=== PATIENT | male | born 1985 | race Caucasian/White ===

== ENCOUNTER 2016-12-28 05:03 | Emergency (ER) | payer MEDICAID ==
[2016-12-28 05:15] VITALS: O2SAT 98
[2016-12-28] MEDS ORDERED: TORAdol 30 mg Injection IM ONE (05:25)
--- NOTE | 2016-12-28 05:25 | ERPHSYRPT ---
- History of Present Illness Source: patient Exam Limitations: clinical condition Patient Subjective Stated Complaint: pt has a history of back problems and needs surgery -he has been crying for 2 hours - he also has pain in his left 4th finger -he injured it yesterday while playing basketball -he is from out of town and here taking care of family Triage Nursing Assessment: pt is awake and alert and able to answer questions Physician History: Patient with pain left ring finger after grabbing dog to make behavior earlier today with pain in the proximal and distal interphalangeal joints areas. Did some icing for a few minutes earlier today pain with flexion at this joint. Denies other injury. Patient has history of chronic low back pain is supposed to have back surgery at his desk is been bothering him more today. Has been taking ibuprofen 600 mg twice yesterday. No change in bowel or bladder control and no radiation in the lower extremities. Was able to walk to the emergency room at this time without any difficulty. 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 Occurred: this morning Method of Injury: twisted (and pulled) Quality: constant, aching, throbbing Severity of Pain-Max: moderate Severity of Pain-Current: moderate Extremities Pain Location: 4th finger: left Modifying Factors: Improves With: immobilization, movement, rest Associated Symptoms: other (CHRONIC BACK PAIN EXACERBATION) Allergies/Adverse Reactions: divalproex sodium [From Depakote] Allergy (Verified 12/28/16 05:23) pseudoephedrine [From Sudafed] Allergy (Verified 12/28/16 05:22) quetiapine [From Seroquel] Allergy (Verified 12/28/16 05:23) Home Medications: Lamotrigine [Lamictal] 0 mg DAILY 12/28/16 [History] Omeprazole 20 MG [Prilosec 20 mg] 0 mg 12/28/16 [History] Ranitidine HCl [Zantac] 0 mg DAILY 12/28/16 [History] Verapamil HCl 0 mg DAILY 12/28/16 [History] Hx Tetanus, Diphtheria Vaccination/Date Given: No Hx Influenza Vaccination/Date Given: No Hx Pneumococcal Vaccination/Date Given: No Immunizations Up to Date: No - Review of Systems Constitutional: No Symptoms Eyes: No Symptoms Ears, Nose, & Throat: No Symptoms Respiratory: No Symptoms Cardiac: No Symptoms Abdominal/Gastrointestinal: No Symptoms Genitourinary Symptoms: No Symptoms Musculoskeletal: Back Pain, Other ( NOTED HPI LRF) Skin: No Symptoms Neurological: No Symptoms Psychological: No Symptoms - Past Medical History Neurological History: Migraines Musculoskeletal History: Other (CHRONIC BACK PAIN) GI Medical History: Ulcer (SYMPTOMS INTERMITTENTLY TAKES ZANTAC PRN,NONE AT THIS TIME.) Psycho-Social History: Bipolar - Past Surgical History Gastrointestinal: Hernia Repair - Social History Smoking Status: Current every day smoker Exposure to second hand smoke: Yes Patient Lives Alone: No - Nursing Vital Signs Nursing Vital Signs: Initial Vital Signs Temperature 98.2 F 12/28/16 05:13 Pulse Rate 74 12/28/16 05:13 Respiratory Rate 20 12/28/16 05:13 Blood Pressure 130/90 12/28/16 05:13 O2 Sat by Pulse Oximetry 98 12/28/16 05:13 Pain Scale Pain Intensity [Back] 8 Pain Intensity 8 - Physical Exam General Appearance: mild distress, alert, anxiety Eyes, Ears, Nose, Throat Exam: normal ENT inspection Neck Exam: normal inspection Cardiovascular/Respiratory Exam: chest non-tender, normal breath sounds, regular rate/rhythm Abdominal Exam: non-tender, soft, no organomegaly, no hernia, No guarding, No tenderness Back Exam: normal inspection, muscle spasm (WITH MILD PALPABLE TENDERNESS RIGHT LOWER THORACIC UPPER LUMBAR AREA), other (STRAIGHT LEG RAISING NEGATIVE BILATERAL NORMAL +2 OR 4 REFLEXES PATELLAR AND ACHILLES AND NORMAL SENSATION LOWER EXTREMI), No vertebral tenderness Shoulder Exam: normal inspection Elbow/Forearm Exam: normal inspection Wrist Exam: normal inspection Hand Exam: limited ROM (unable to flex the distal phalanx and DIP join with some tenderness), soft tissue tenderness (INTACT BUT PAINFUL,PIP JOINT LEFT RING FINGER), swelling (LEFT RING FINGER PIP JOINTRANGE OF MOTION IS INTACT BUT PAINFUL WITH NORMAL NEUROVASCULAR MUSCULAR F AND STRESS TESTING.), No nail injury Neuro/Tendon Exam: normal sensation, tendon function deficit ( NOTED), No no evidence tendon injury, No motor deficit, No sensory deficit Mental Status Exam: alert, oriented x 3, cooperative Skin Exam: normal color, warm, dry, rash SpO2 Interpretation: normal SpO2: 98 Oxygen Delivery: Room Air Ordered Tests: Active Orders 24 hr Category Date Time Status Splint STAT Care 12/28/16 06:07 Active FINGER(S) Stat Exams 12/28/16 05:18 Taken Medication Summary Discontinued Medications Generic Name Dose Route Start Last Admin Trade Name Russell PRN Reason Stop Dose Admin Ketorolac Tromethamine 60 mg 12/28/16 05:25 12/28/16 05:29 Toradol 30 Mg Injection IM 12/28/16 05:26 60 mg STAT ONE Administration Ketorolac Tromethamine Confirm 12/28/16 05:28 Toradol 30 Mg Injection Administered 12/28/16 05:29 Dose 60 mg .ROUTE .STK-MED ONE - Progress Progress: improved, re-examined Progress Note: 12/28/16 06:38Patient with jersey finger injury left ring finger. Patient's Medicaid primary medical provider is in [place] and he is referred to this physician as soon as possible for referral to a hand specialist for further treatment and possible surgery of this injury. He is given copy of his x-rays. I emphasized the importance of this greatly and patient understood. Counseled pt/family regarding: diagnosis, need for follow-up, rad results - Departure Time of Disposition: 06:18 Departure Disposition: Home Clinical Impression: Jersey finger Qualifiers: Encounter type: initial encounter Qualified Code(s): S63.639A - Sprain of interphalangeal joint of unspecified finger, initial encounter Back pain Qualifiers: Back pain location: back pain in unspecified location Chronicity: chronic Back pain laterality: unspecified Qualified Code(s): M54.9 - Dorsalgia, unspecified Condition: Stable Critical Care Time: No Referrals: DOCTOR,NO FAMILY [Primary Care Provider] - Instructions: Finger Flexor Tendon Injury, Low Back Pain Additional Instructions: You have torn the tendon that flexes the end of ear ring finger on the left hand, keep the finger in the splint that we have applied reinforced tape as necessary. You must see your medical Medicaid provider as soon as possible and be referred to a hand surgeon. The surgery needs to be done within 7-10 days for good results. He may apply ice to the area for 20 m/h as often as possible next 48 hours also may take Motrin and/or Tylenol for discomfort. Also recommended this medicine for your back pain and follow-up with your pain management and/or medical provider for this also. Obviously no strenuous activity at all with your left hand.
[2016-12-28] MEDS ORDERED: TORAdol 30 mg Injection ONE (05:28)
[2016-12-28 06:26] VITALS: BP 135/98; PULSE 68
--- NOTE | 2016-12-28 13:03 | XRAY ---
Exam: 3 views of the left fourth finger including most of the left hand from 12/28/2016. Comparison: None. Indication: Trauma to left fourth digit. Findings: AP, oblique, and lateral radiographs were obtained. I note mild soft tissue swelling about the PIP joint of the left fourth finger. However, no acute fracture or dislocation is seen. The joint spaces appear unremarkable. No other abnormality of the visualized left hand is seen. Impression: 1. No acute fracture or dislocation of the left fourth finger is seen. 2. I note mild diffuse soft tissue swelling about the PIP joint of the left fourth finger. Correlate clinically.
== END 2016-12-28 06:43 | disposition home or self-care (01) ==
LOC: ED 05:03
DX: S63.639A Sprain of interphalangeal joint of unspecified finger, initial encounter (principal); M54.9 Dorsalgia, unspecified; M79.645 Pain in left finger(s)
CPT/HCPCS: 73140; 96372; 96374; 99282; 99284; J1885

== ENCOUNTER 2017-01-18 17:16 | Emergency (ER) | payer MEDICAID | END 2017-01-18 18:51 | disposition left against medical advice (07) | LOC: ED 17:16 | DX: Z53.9 Procedure and treatment not carried out, unspecified reason (principal) ==

== ENCOUNTER 2017-01-19 22:50 | Emergency (ER) | payer MEDICAID ==
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
[2017-01-19 23:18] VITALS: BP 130/95; PULSE 83
[2017-01-19 23:48] VITALS: O2SAT 96
== END 2017-01-20 00:12 | disposition home or self-care (01) ==
LOC: ED 22:50
DX: F32.9 Major depressive disorder, single episode, unspecified (principal)
CPT/HCPCS: 99282

== ENCOUNTER 2017-01-24 10:37 | Emergency (ER) | payer MEDICAID ==
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
[2017-01-24 11:11] LABS: BASOPHIL % 0.5 % (0.0-0.4); Eosinophil % 3.2 % (0.00-5.0); Granulocytes % 60.8 % (36.0-66.0); Lymphocytes % 28.1 % (24.0-44.0); Mean Cell Volume 86.7 fl (78-100); Mean Platelet Volume 10.1 fl (6-9.5); Monocytes % 7.4 % (0.0-12.0); Platelet Count 393 K/mm3 (150-450); Red Blood Count 5.13 M/mm3 (4.1-5.6); Red Cell Distribution Width 12.4 % (11.5-14.0); White Blood Count 6.3 K/mm3 (4.0-10.5)
[2017-01-24 11:23] LABS: ADD URINE CULTURE? NO (NO); Bilirubin NEGATIVE (NEGATIVE); Blood NEGATIVE Ery/ul (0-5); COMPLETE URINE MICROSCOPIC? NO; Collection Type CCMS; Glucose NEGATIVE (NEGATIVE); Leukocyte Esterase NEGATIVE (NEGATIVE)
[2017-01-24 11:41] LABS: ALBUMIN 3.9 g/dL (3.4-5.0); ALKALINE PHOSPHATASE 85 U/L (46-116); ANION GAP 13.4 MEQ/L (5-15); BLOOD UREA NITROGEN 10 mg/dL (9-20); CHLORIDE 105 mEq/L (98-107); Carbon Dioxide 25.7 mEq/L (21-32); ETHYL ALCOHOL < 0.010 % (0.00-0.01); Glucose 100 MG/DL (70-110); Potassium 4.2 mEq/L (3.5-5.1); SGOT/AST 23 U/L (15-37); SGPT/ALT 21 U/L (12-78); SODIUM 140 mEq/L (136-145); Total Protein 7.6 gm/dL (6.4-8.2)
[2017-01-24 11:43] LABS: ACETAMINOPHEN < 2.0 ug/ml (10-30)
[2017-01-24 14:28] VITALS: BP 137/79
[2017-01-24 15:45] VITALS: PULSE 70
[2017-01-24] MEDS ORDERED: Ativan 0.5 MG PO ONE (15:49)
[2017-01-24] MEDS ORDERED: Ativan 1 MG ONE (15:56)
[2017-01-24 16:14] VITALS: O2SAT 96
== END 2017-01-24 17:09 | disposition short-term general hospital (02) ==
LOC: ED 10:37
DX: F29 Unspecified psychosis not due to a substance or known physiological condition (principal)
CPT/HCPCS: 36415; 80053; 80307; 81002; 85025; 90791; 99285; G0481; Q3014; A9270-GY

== ENCOUNTER 2017-02-26 21:46 | Emergency (ER) | payer MEDICAID ==
[2017-02-26 22:04] VITALS: O2SAT 93
--- NOTE | 2017-02-26 22:15 | ERPHSYRPT ---
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 headache starting at 2015 tonight.. states hx of headaches.. no known injury.. vomiting with headache. noted bilateral eye redness and nasal congestion. 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 denies numbness or tingling to extremities. Physician History: FOR ABOUT THE PAST 2 HOURS PT HAS HAD HIS TYPICAL MIGRAINE HEADACHE WITH NAUSEA , VOMITING X3 WITHOUT BLOOD, BLURRY VISION AND PHOTOPHOBIA. PT STATES HIS LAST CT-HEAD WAS 5 YEARS AGO. PT DENIES TINGLING/NUMBNESS, WEAKNESS, CHEST PAIN, SHORTNESS OF AIR, FEVER. Allergies/Adverse Reactions: divalproex sodium [From Depakote] Allergy (Verified 02/26/17 22:05) olanzapine [From Zyprexa] Allergy (Verified 02/26/17 22:09) pseudoephedrine [From Sudafed] Allergy (Verified 02/26/17 22:05) quetiapine [From Seroquel] Allergy (Verified 02/26/17 22:05) Home Medications: Omeprazole 20 MG [Prilosec 20 mg] 20 mg PO DAILY 12/28/16 [History] Ranitidine HCl [Zantac] 300 mg PO DAILY PRN PRN 12/28/16 [History] Albuterol Sulfate [Proventil Hfa] 6.7 gm IH Q6HPRN PRN 02/26/17 [History] Aspirin/Acetaminophen/Caffeine [Excedrin Extra Strength Caplet] 1 each PO Q6H PRN PRN 02/26/17 [History] Fexofenadine HCl 180 mg PO BID 02/26/17 [History] Fluticasone Propionate [Flonase Nasal] 0 gm INTRANASAL DAILY PRN PRN 02/26/17 [ History] Fluticasone/Salmeterol [Advair 100-50 Diskus] 1 each IH BID 02/26/17 [History] Guanfacine HCl 1 mg PO TID 02/26/17 [History] Ibuprofen 200 mg [Motrin 200 mg] 200 mg PO Q8H PRN PRN 02/26/17 [History] Lamotrigine [Lamictal] 150 mg PO BID 02/26/17 [History] Loperamide HCl 2 mg [Imodium 2 mg] 2 mg PO UD 02/26/17 [History] Mupirocin 22 gm TP QID 02/26/17 [History] Ondansetron [Zofran Odt] 4 mg PO Q8H PRN PRN 02/26/17 [History] Pramoxine HCl [Sarna] 222 ml TP BID 02/26/17 [History] Promethazine HCl 25 mg PO Q6H PRN PRN 02/26/17 [History] Sildenafil Citrate [Sildenafil] 20 mg PO UD 02/26/17 [History] Verapamil HCl [Verapamil Sr] 360 mg PO DAILY 02/26/17 [History] Hx Tetanus, Diphtheria Vaccination/Date Given: No Hx Influenza Vaccination/Date Given: No Hx Pneumococcal Vaccination/Date Given: No Immunizations Up to Date: No - Review of Systems Constitutional: No Weakness Eyes: Photophobia, Vision Changes (BLURRY VISION) Respiratory: No Dyspnea Cardiac: No Chest Pain Abdominal/Gastrointestinal: Nausea, Vomiting Neurological: Headache All Other Systems: Reviewed and Negative - Past Medical History Pertinent Past Medical History: Yes Neurological History: Migraines Respiratory History: Asthma Musculoskeletal History: Other GI Medical History: Ulcer Psycho-Social History: Bipolar Other Medical History: EXPLOSIVE DISORDER. MENTAL RETARDATION - Past Surgical History Past Surgical History: Yes Gastrointestinal: Hernia Repair Musculoskeletal: Orthopedic Surgery Other Surgical History: back surgery - Social History Smoking Status: Current every day smoker How long have you smoked: YRS Exposure to second hand smoke: No Alcohol Use: None Drug Use: marijuana Patient Lives Alone: No Significant Family History: no pertinent family hx - Nursing Vital Signs Nursing Vital Signs: Initial Vital Signs Temperature 97.7 F 02/26/17 21:50 Pulse Rate 70 02/26/17 21:50 Blood Pressure 150/91 02/26/17 21:50 O2 Sat by Pulse Oximetry 93 L 02/26/17 21:50 Pain Scale Pain Intensity 8 - Physical Exam General Appearance: alert Eye Exam: PERRL/EOMI Ears, Nose, Throat Exam: pharynx normal, moist mucous membranes Neck Exam: full range of motion Respiratory Exam: lungs clear Cardiovascular Exam: normal heart sounds Gastrointestinal/Abdomen Exam: soft, normal bowel sounds Back Exam: normal range of motion Extremity Exam: normal inspection, normal range of motion Neurologic Exam: alert, cooperative, sensation nml, No motor deficits Skin Exam: warm, dry SpO2 Interpretation: normal SpO2: 93 Oxygen Delivery: Room Air - Course Nursing assessment & vital signs reviewed: Yes Ordered Tests: Medication Summary Discontinued Medications Generic Name Dose Route Start Last Admin Trade Name Freq PRN Reason Stop Dose Admin Hydromorphone HCl 1 mg 02/26/17 22:30 02/26/17 22:40 Hydromorphone 1 Mg/Ml Ampule IM 02/26/17 22:31 1 mg STAT ONE Administration Hydromorphone HCl Confirm 02/26/17 22:33 Hydromorphone 1 Mg/Ml Ampule Administered 02/26/17 22:34 Dose 1 mg .ROUTE .STK-MED ONE Promethazine HCl 25 mg 02/26/17 22:30 02/26/17 22:40 Phenergan 25 Mg Inj IM 02/26/17 22:31 25 mg STAT ONE Administration Promethazine HCl Confirm 02/26/17 22:33 Phenergan 25 Mg Inj Administered 02/26/17 22:34 Dose 25 mg .ROUTE .STK-MED ONE - Departure Time of Disposition: 22:52 Departure Disposition: Home Clinical Impression: MIGRAINE HEADACHE Condition: Stable Critical Care Time: No Referrals: DOCTOR,NO FAMILY [Primary Care Provider] - Instructions: Headache Additional Instructions: FOLLOW UP WITH PRIVATE DOCTOR TOMORROW. Prescriptions: Promethazine HCl 25 mg [Phenergan 25 mg] 25 mg PO Q4H PRN PRN #14 tablet PRN Reason: Nausea/Vomiting
[2017-02-26] MEDS ORDERED: Hydromorphone 1 mg/ml Ampule IM ONE (22:30)
[2017-02-26] MEDS ORDERED: Phenergan 25 MG INJ IM ONE (22:30)
[2017-02-26] MEDS ORDERED: Hydromorphone 1 mg/ml Ampule ONE (22:33)
[2017-02-26] MEDS ORDERED: Phenergan 25 MG INJ ONE (22:33)
[2017-02-26 23:22] VITALS: BP 145/93; PULSE 82
== END 2017-02-26 23:22 | disposition home or self-care (01) ==
LOC: ED 21:46
DX: G43.909 Migraine, unspecified, not intractable, without status migrainosus (principal); R11.2 Nausea with vomiting, unspecified
CPT/HCPCS: 96372; 99284; J1170; J2550

== ENCOUNTER 2017-07-01 05:13 | Emergency (ER) | payer MEDICAID ==
--- NOTE | 2017-07-01 05:36 | ERPHSYRPT ---
- History of Present Illness Time Seen by Provider: 07/01/17 05:31 Source: patient, other (N.N.) Exam Limitations: no limitations Patient Subjective Stated Complaint: pt states he has had a temp of 101.2 at home and has been vomiting and having diarrhea Triage Nursing Assessment: pt alert and oriented, asnwers questions approp. respirations nonlabored with jen ngs cta. pt ambulatory with st fauzia gait noted. abd sift and nontender to light palpation. bowel sounds present in all 4 quads. Physician History: FOR THE PAST 9.5 HOURS PT HAS HAD VOMITING X7 AND DIARRHEA X7 BOTH WITHOUT BLOOD , HIS TYPICAL MIGRAINE HEADACHE AND FEVER UP TO 101.2 DEGREES. PT DENIES CHEST PAIN, COUGH, SHORTNESS OF AIR, ABDOMINAL PAIN. LAST CT HEAD WAS WITHIN 5 YEARS & WNL. Allergies/Adverse Reactions: divalproex sodium [From Depakote] Allergy (Verified 07/01/17 05:43) olanzapine [From Zyprexa] Allergy (Verified 07/01/17 05:43) pseudoephedrine [From Sudafed] Allergy (Verified 07/01/17 05:43) quetiapine [From Seroquel] Allergy (Verified 07/01/17 05:43) Home Medications: Omeprazole 20 MG [Prilosec 20 mg] 20 mg PO DAILY 12/28/16 [History] Ranitidine HCl [Zantac] 300 mg PO DAILY PRN PRN 12/28/16 [History] Albuterol Sulfate [Proventil Hfa] 6.7 gm IH Q6HPRN PRN 02/26/17 [History] Aspirin/Acetaminophen/Caffeine [Excedrin Extra Strength Caplet] 1 each PO Q6H PRN PRN 02/26/17 [History] Fexofenadine HCl 180 mg PO BID 02/26/17 [History] Fluticasone Propionate [Flonase Nasal] 0 gm INTRANASAL DAILY PRN PRN 02/26/17 [ History] Fluticasone/Salmeterol [Advair 100-50 Diskus] 1 each IH BID 02/26/17 [History] Guanfacine HCl 0.5 mg PO TID 02/26/17 [History] Ibuprofen 200 mg [Motrin 200 mg] 200 mg PO Q8H PRN PRN 02/26/17 [History] Lamotrigine [Lamictal] 150 mg PO BID 02/26/17 [History] Loperamide HCl 2 mg [Imodium 2 mg] 2 mg PO UD 02/26/17 [History] Mupirocin 22 gm TP QID 02/26/17 [History] Ondansetron [Zofran Odt] 4 mg PO Q8H PRN PRN 02/26/17 [History] Pramoxine HCl [Sarna] 222 ml TP BID 02/26/17 [History] Promethazine HCl 25 mg PO Q6H PRN PRN 02/26/17 [History] Sildenafil Citrate [Sildenafil] 20 mg PO UD 02/26/17 [History] Verapamil HCl [Verapamil Sr] 360 mg PO DAILY 02/26/17 [History] Hx Tetanus, Diphtheria Vaccination/Date Given: No (unknown) Hx Influenza Vaccination/Date Given: Yes Hx Pneumococcal Vaccination/Date Given: No Immunizations Up to Date: No - Review of Systems Constitutional: Fever Respiratory: No Cough, No Dyspnea Cardiac: No Chest Pain Abdominal/Gastrointestinal: Vomiting, Diarrhea, No Abdominal Pain Neurological: Headache All Other Systems: Reviewed and Negative - Past Medical History Pertinent Past Medical History: Yes Neurological History: Migraines Respiratory History: Asthma Musculoskeletal History: Other GI Medical History: Ulcer Psycho-Social History: Bipolar Other Medical History: INTERMITTENT EXPLOSIVE DISORDER. MENTAL RETARDATION - Past Surgical History Past Surgical History: Yes Gastrointestinal: Hernia Repair Musculoskeletal: Orthopedic Surgery Other Surgical History: back surgery - Social History Smoking Status: Current every day smoker How long have you smoked: 20yrs Exposure to second hand smoke: Yes Alcohol Use: None Drug Use: marijuana Patient Lives Alone: No Significant Family History: no pertinent family hx - Nursing Vital Signs Nursing Vital Signs: Initial Vital Signs Temperature 98.1 F 07/01/17 05:21 Pulse Rate 113 H 07/01/17 05:21 Respiratory Rate 18 07/01/17 05:21 Blood Pressure 131/92 07/01/17 05:21 O2 Sat by Pulse Oximetry 95 07/01/17 05:21 Pain Scale Pain Intensity 4 - Physical Exam General Appearance: alert Eye Exam: PERRL/EOMI Ears, Nose, Throat Exam: TMs normal, dry mucous membranes, pharyngeal erythema Neck Exam: normal inspection Respiratory Exam: lungs clear Cardiovascular Exam: tachycardia Gastrointestinal/Abdomen Exam: soft, other ([employer] MIL[employer]PERACT[employer] AND NORMOTONIC) Back Exam: normal range of motion Extremity Exam: normal inspection, No pedal edema Neurologic Exam: alert, cooperative Skin Exam: warm, dry SpO2 Interpretation: normal SpO2: 95 Oxygen Delivery: Room Air - Course Nursing assessment & vital signs reviewed: Yes Ordered Tests: Active Orders 24 hr Category Date Time Status Clean Catch Urine Specimen STAT Care 07/01/17 05:36 Active IV Insertion STAT Care 07/01/17 05:36 Active AMYLASE Stat Lab 07/01/17 05:45 Completed CBC W DIFF Stat Lab 07/01/17 05:45 Completed CMP Stat Lab 07/01/17 05:45 Completed CULTURE, THROAT Stat Lab 07/01/17 05:45 Received LIPASE Stat Lab 07/01/17 05:45 Completed MAGNESIUM Stat Lab 07/01/17 05:45 Completed STREP SCREEN-BETA A Stat Lab 07/01/17 05:45 Completed UA W/ MICROSCOPIC Stat Lab 07/01/17 06:30 Results Medication Summary Generic Name Dose Route Start Last Admin Trade Name Freq PRN Reason Stop Dose Admin Magnesium Oxide 400 mg 07/01/17 10:00 Mag-Ox 400 PO 07/31/17 09:59 BID CARLOS Discontinued Medications Generic Name Dose Route Start Last Admin Trade Name Freq PRN Reason Stop Dose Admin Fentanyl Citrate 50 mcg 07/01/17 05:36 07/01/17 05:42 Sublimaze 100 Mcg/2 Ml IV 07/01/17 05:37 50 mcg STAT ONE Administration Fentanyl Citrate Confirm 07/01/17 05:40 Sublimaze 100 Mcg/2 Ml Administered 07/01/17 05:41 Dose 100 mcg .ROUTE .STK-MED ONE Sodium Chloride 1,000 mls @ 999 mls/hr 07/01/17 05:36 07/01/17 05:42 Sodium Chloride 0.9% 1000 Ml IV 07/01/17 06:36 999 mls/hr .Q1H1M STA Administration Sodium Chloride Confirm 07/01/17 05:40 Sodium Chloride 0.9% 1000 Ml Administered 07/01/17 05:41 Dose 1,000 mls @ ud .ROUTE .STK-MED ONE Promethazine HCl 12.5 mg 07/01/17 05:36 07/01/17 05:42 Phenergan 25 Mg Inj IV 07/01/17 05:37 12.5 mg STAT ONE Administration Promethazine HCl Confirm 07/01/17 05:40 Phenergan 25 Mg Inj Administered 07/01/17 05:41 Dose 25 mg .ROUTE .STK-MED ONE Lab/Rad Data: Laboratory Result Diagrams 07/01/17 05:45 07/01/17 05:45 Laboratory Results 07/01/17 07/01/17 07/01/17 Range/Units 06:30 05:45 05:45 WBC (4.0-10.5) K/mm3 RBC (4.1-5.6) M/mm3 Hgb (12.5-18.0) gm/dl Hct (42-50) % MCV (78-100) fl MCH (26-32) pg MCHC (32-36) g/dl RDW (11.5-14.0) % Plt Count (150-450) K/mm3 MPV (6-9.5) fl Gran % (36.0-66.0) % Lymphocytes % (24.0-44.0) % Monocytes % (0.0-12.0) % Eosinophils % (0.00-5.0) % Basophils % (0.0-0.4) % Basophils # (0-0.4) Sodium (136-145) mEq/L Potassium (3.5-5.1) mEq/L Chloride (98-107) mEq/L Carbon Dioxide (21-32) mEq/L Anion Gap (5-15) MEQ/L BUN (9-20) mg/dL Creatinine (0.55-1.30) mg/dl Estimated GFR ML/MIN Glucose (70-110) MG/DL Calcium (8.5-10.1) mg/dL Magnesium (1.8-2.4) mg/dL Total Bilirubin (0.2-1.0) mg/dL AST (15-37) U/L ALT (12-78) U/L Alkaline Phosphatase (46-116) U/L Serum Total Protein (6.4-8.2) gm/dL Albumin (3.4-5.0) g/dL Amylase (25-115) U/L Lipase (73-393) U/L Ur Collection Type CCMS Urine Color YELLOW (YELLOW) Urine Appearance CLEAR (CLEAR) Urine pH 6.0 (5-6) Ur Specific [place] 1.010 (1.005-1.025) Urine Protein TRACE (Negative) Urine Ketones NEGATIVE (NEGATIVE) Urine Blood NEGATIVE (0-5) Tylor/ul Urine Nitrite NEGATIVE (NEGATIVE) Urine Bilirubin NEGATIVE (NEGATIVE) Urine Urobilinogen NORMAL (0-1) mg/dL Ur Leukocyte Esterase TRACE (NEGATIVE) Urine Culture Reflexed Pending Urine Glucose NEGATIVE (NEGATIVE) mg/dL Influenza A (RT-PCR) NEGATIVE (NEGATIVE) Influenza B (RT-PCR) NEGATIVE (NEGATIVE) Streptococcus Screen NEGATIVE (Negative) Specimen Received 0630 07/01/17 07/01/17 07/01/17 Range/Units 05:45 05:45 WBC 17.8 H (4.0-10.5) K/mm3 RBC 6.10 H (4.1-5.6) M/mm3 Hgb 17.8 (12.5-18.0) gm/dl Hct 52.5 H (42-50) % MCV 86.1 (78-100) fl MCH 29.1 (26-32) pg MCHC 33.9 (32-36) g/dl RDW 12.9 (11.5-14.0) % Plt Count 441 (150-450) K/mm3 MPV 10.6 H (6-9.5) fl Gran % 84.4 H (36.0-66.0) % Lymphocytes % 8.2 L (24.0-44.0) % Monocytes % 5.4 (0.0-12.0) % Eosinophils % 1.9 (0.00-5.0) % Basophils % 0.1 (0.0-0.4) % Basophils # 0.01 (0-0.4) Sodium 139 (136-145) mEq/L Potassium 3.9 (3.5-5.1) mEq/L Chloride 102 (98-107) mEq/L Carbon Dioxide 24.2 (21-32) mEq/L Anion Gap 16.5 H (5-15) MEQ/L BUN 13 (9-20) mg/dL Creatinine 1.40 H (0.55-1.30) mg/dl Estimated GFR > 60 ML/MIN Glucose 149 H (70-110) MG/DL Calcium 9.3 (8.5-10.1) mg/dL Magnesium 1.7 L (1.8-2.4) mg/dL Total Bilirubin 0.50 (0.2-1.0) mg/dL AST 25 (15-37) U/L ALT 38 (12-78) U/L Alkaline Phosphatase 79 (46-116) U/L Serum Total Protein 8.2 (6.4-8.2) gm/dL Albumin 4.0 (3.4-5.0) g/dL Amylase 31 (25-115) U/L Lipase 89 (73-393) U/L Ur Collection Type Urine Color (YELLOW) Urine Appearance (CLEAR) Urine pH (5-6) Ur Specific [place] (1.005-1.025) Urine Protein (Negative) Urine Ketones (NEGATIVE) Urine Blood (0-5) Tylor/ul Urine Nitrite (NEGATIVE) Urine Bilirubin (NEGATIVE) Urine Urobilinogen (0-1) mg/dL Ur Leukocyte Esterase (NEGATIVE) Urine Culture Reflexed Urine Glucose (NEGATIVE) mg/dL Influenza A (RT-PCR) (NEGATIVE) Influenza B (RT-PCR) (NEGATIVE) Streptococcus Screen (Negative) Specimen Received - Departure Time of Disposition: 06:46 Departure Disposition: Home Clinical Impression: MIGRAINE HEADACHE, VOMITING, DIARRHEA Condition: Stable Critical Care Time: Yes Critical Care Time(excluding separately billable procedures): 30-74 minutes Referrals: BIRDIE NOBLE [Primary Care Provider] - Instructions: Fever, Adult (DC) Additional Instructions: FOLLOW UP WITH PRIVATE DOCTOR TOMORROW. Prescriptions: Promethazine HCl 25 mg [Phenergan 25 mg] 25 mg PO Q4H PRN PRN #14 tablet PRN Reason: Nausea/Vomiting
[2017-07-01] MEDS ORDERED: Sodium Chloride 0.9% 1000 ML 1,000 ML ONE (05:40)
[2017-07-01] MEDS ORDERED: Phenergan 25 MG INJ ONE (05:40)
[2017-07-01] MEDS ORDERED: SUBLIMAZE 100 MCG/2 ML ONE (05:40)
[2017-07-01] MEDS: Phenergan 25 MG INJ IV ONE (05:42)
[2017-07-01] MEDS: Sodium Chloride 0.9% 1000 ML 1,000 ML IV STA (05:42)
[2017-07-01] MEDS: SUBLIMAZE 100 MCG/2 ML IV ONE (05:42)
[2017-07-01 06:11] LABS: BASOPHIL % 0.1 % (0.0-0.4); Basophil (Absolute #) 0.01 (0-0.4); Eosinophil % 1.9 % (0.00-5.0); Eosinophil (Absolute #) 0.33 (0-0.5); Granulocyte Absolute (ANC) 15.05 (1.4-6.9); Granulocytes % 84.4 % (36.0-66.0); Hematocrit 52.5 % (42-50); Hemoglobin 17.8 gm/dl (12.5-18.0); Lymphocyte (Absolute #) 1.47 (1.0-4.6); Lymphocytes % 8.2 % (24.0-44.0); Mean Cell Volume 86.1 fl (78-100); Mean Corpuscular Hemoglobin 29.1 pg (26-32); Mean Corpuscular Hgb Concent. 33.9 g/dl (32-36); Mean Platelet Volume 10.6 fl (6-9.5); Monocyte (Absolute #) 0.96 (0.0-1.3); Monocytes % 5.4 % (0.0-12.0); Platelet Count 441 K/mm3 (150-450); Red Cell Distribution Width 12.9 % (11.5-14.0); White Blood Count 17.8 K/mm3 (4.0-10.5)
[2017-07-01 06:12] VITALS: BP 157/86; PULSE 93
[2017-07-01 06:16] LABS: ALKALINE PHOSPHATASE 79 U/L (46-116); AMYLASE 31 U/L (25-115); ANION GAP 16.5 MEQ/L (5-15); BLOOD UREA NITROGEN 13 mg/dL (9-20); CHLORIDE 102 mEq/L (98-107); Calcium 9.3 mg/dL (8.5-10.1); Carbon Dioxide 24.2 mEq/L (21-32); EST GLOMERULAR FILTRATION RATE > 60 ML/MIN; Glucose 149 MG/DL (70-110); LIPASE 89 U/L (73-393); MAGNESIUM 1.7 mg/dL (1.8-2.4); Potassium 3.9 mEq/L (3.5-5.1); SGOT/AST 25 U/L (15-37); SGPT/ALT 38 U/L (12-78); SODIUM 139 mEq/L (136-145); Total Protein 8.2 gm/dL (6.4-8.2)
[2017-07-01 06:32] LABS: Appearance CLEAR (CLEAR); Bilirubin NEGATIVE (NEGATIVE); Blood NEGATIVE Ery/ul (0-5); Glucose NEGATIVE (NEGATIVE); Ketones NEGATIVE (NEGATIVE); Leukocyte Esterase TRACE (NEGATIVE); Nitrite NEGATIVE (NEGATIVE); Protein,Urine Dip TRACE (Negative); Urobilinogen NORMAL mg/dL (0-1)
[2017-07-01] MEDS ORDERED: MAG-OX 400 ONE (06:43)
[2017-07-01] MEDS: MAG-OX 400 PO SCH (06:44)
[2017-07-01 06:46] VITALS: O2SAT 95
[2017-07-01 07:13] LABS: Bacteria FEW /HPF (NEGATIVE); Epithelial Cells RARE /HPF (FEW); Hyaline Casts 0-2 /LPF (0-2); Mucus MODERATE /HPF (NEGATIVE)
== END 2017-07-01 06:52 | disposition home or self-care (01) ==
LOC: ED 05:13
DX: G43.909 Migraine, unspecified, not intractable, without status migrainosus (principal); R11.2 Nausea with vomiting, unspecified; R19.7 Diarrhea, unspecified; Z72.0 Tobacco use; Z79.899 Other long term (current) drug therapy; F31.9 Bipolar disorder, unspecified; F63.81 Intermittent explosive disorder; F79 Unspecified intellectual disabilities
CPT/HCPCS: 36000; 36415; 80053; 81000; 82150; 83690; 83735; 85025; 87070; 87086; 87430; 87502; 96360; 96374; 96375; 99284; J2550; J3010; A9270-GY

== ENCOUNTER 2017-10-27 02:27 | Emergency (ER) | payer MEDICAID ==
[2017-10-27 02:56] VITALS: BP 132/102; PULSE 80; O2SAT 98
[2017-10-27] MEDS ORDERED: Hydromorphone 1 mg/ml Ampule IM ONE (03:09)
[2017-10-27] MEDS ORDERED: Cyclobenzaprine 10 MG PO ONE (03:10)
[2017-10-27] MEDS ORDERED: DILAUDID 2 MG INJECTION ONE (03:30)
[2017-10-27] MEDS ORDERED: Cyclobenzaprine 10 MG ONE (03:30)
--- NOTE | 2017-10-27 03:41 | ERPHSYRPT ---
- History of Present Illness Time Seen by Provider: 10/27/17 03:00 Source: patient Exam Limitations: no limitations Patient Subjective Stated Complaint: had hand surgery by Dr Tubbs yesterday. pain tonight. Triage Nursing Assessment: arrived with splint/bandage to left hand isolating the 5th, 4th and 3rd fingers. completely covered. able to palpate splint. fingers exposed pain and warm. good movement to exposed fingers. Physician History: 32 y/o male s/p hand surgery by Dr Tubbs yesterday comes to the ER with complaints of left hand and finger tip pain and spasm. Pt describes the pain as sharp, constant, 10/10 and not relieved by norco. Pt denies any fever, chills, and the cast is not tightly placed. Occurred: yesterday Method of Injury: unknown Quality: constant Severity of Pain-Max: severe Severity of Pain-Current: severe Extremities Pain Location: wrist: left, hand: left Modifying Factors: Improves With: nothing Associated Symptoms: none Allergies/Adverse Reactions: divalproex sodium [From Depakote] Allergy (Verified 07/01/17 05:43) olanzapine [From Zyprexa] Allergy (Verified 07/01/17 05:43) pseudoephedrine [From Sudafed] Allergy (Verified 07/01/17 05:43) quetiapine [From Seroquel] Allergy (Verified 07/01/17 05:43) Home Medications: Omeprazole 20 MG [Prilosec 20 mg] 20 mg PO DAILY 12/28/16 [History] Ranitidine HCl [Zantac] 300 mg PO DAILY PRN PRN 12/28/16 [History] Albuterol Sulfate [Proventil Hfa] 6.7 gm IH Q6HPRN PRN 02/26/17 [History] Aspirin/Acetaminophen/Caffeine [Excedrin Extra Strength Caplet] 1 each PO Q6H PRN PRN 02/26/17 [History] Fexofenadine HCl 180 mg PO BID 02/26/17 [History] Fluticasone Propionate [Flonase Nasal] 0 gm INTRANASAL DAILY PRN PRN 02/26/17 [ History] Fluticasone/Salmeterol [Advair 100-50 Diskus] 1 each IH BID 02/26/17 [History] Guanfacine HCl 0.5 mg PO TID 02/26/17 [History] Ibuprofen 200 mg [Motrin 200 mg] 200 mg PO Q8H PRN PRN 02/26/17 [History] Loperamide HCl 2 mg [Imodium 2 mg] 2 mg PO UD 02/26/17 [History] Mupirocin 22 gm TP QID 02/26/17 [History] Ondansetron [Zofran Odt] 4 mg PO Q8H PRN PRN 02/26/17 [History] Pramoxine HCl [Sarna] 222 ml TP BID 02/26/17 [History] Promethazine HCl 25 mg PO Q6H PRN PRN 02/26/17 [History] Sildenafil Citrate [Sildenafil] 20 mg PO UD 02/26/17 [History] Verapamil HCl [Verapamil Sr] 360 mg PO DAILY 02/26/17 [History] lamoTRIgine [Lamictal] 150 mg PO BID 02/26/17 [History] Hx Tetanus, Diphtheria Vaccination/Date Given: No (unknown) Hx Influenza Vaccination/Date Given: Yes Hx Pneumococcal Vaccination/Date Given: No - Review of Systems Constitutional: No Fever, No Chills Eyes: No Symptoms Ears, Nose, & Throat: No Symptoms Respiratory: No Cough, No Dyspnea Cardiac: No Chest Pain, No Edema, No Syncope Abdominal/Gastrointestinal: No Abdominal Pain, No Nausea, No Vomiting, No Diarrhea Genitourinary Symptoms: No Dysuria Musculoskeletal: Joint Pain, Myalgias, No Back Pain, No Neck Pain Skin: No Cellulitis, No Rash Neurological: No Dizziness, No Focal Weakness, No Sensory Changes Psychological: No Symptoms Endocrine: No Symptoms All Other Systems: Reviewed and Negative - Past Medical History Pertinent Past Medical History: Yes Neurological History: Migraines Respiratory History: Asthma Musculoskeletal History: Other GI Medical History: Ulcer Psycho-Social History: Bipolar Other Medical History: INTERMITTENT EXPLOSIVE DISORDER. MENTAL RETARDATION - Past Surgical History Past Surgical History: Yes Gastrointestinal: Hernia Repair Musculoskeletal: Orthopedic Surgery Other Surgical History: back surgery, hand surgery - Social History Smoking Status: Current every day smoker How long have you smoked: 20yrs Exposure to second hand smoke: No Alcohol Use: None Drug Use: none Patient Lives Alone: No Significant Family History: no pertinent family hx - Nursing Vital Signs Nursing Vital Signs: Initial Vital Signs Pulse Rate 80 10/27/17 02:46 Respiratory Rate 16 10/27/17 02:46 Blood Pressure 132/102 10/27/17 02:46 O2 Sat by Pulse Oximetry 98 10/27/17 02:46 Pain Scale Pain Intensity 10 - Physical Exam General Appearance: alert Eyes, Ears, Nose, Throat Exam: moist mucous membranes Neck Exam: non-tender, supple Cardiovascular/Respiratory Exam: chest non-tender, normal breath sounds, regular rate/rhythm, no respiratory distress Abdominal Exam: non-tender, No guarding Back Exam: normal inspection, No vertebral tenderness Elbow/Forearm Exam: normal inspection, non-tender, no evidence of injury Wrist Exam: normal inspection, non-tender, no evidence of injury Hand Exam: normal inspection, non-tender Neuro/Tendon Exam: normal sensation, normal motor functions, normal tendon functions Mental Status Exam: alert, oriented x 3, cooperative Skin Exam: normal color, warm, dry SpO2: 98 Oxygen Delivery: Room Air - Course Nursing assessment & vital signs reviewed: Yes Ordered Tests: Medication Summary Discontinued Medications Generic Name Dose Route Start Last Admin Trade Name Russell PRN Reason Stop Dose Admin Cyclobenzaprine HCl 10 mg 10/27/17 03:10 10/27/17 03:23 Cyclobenzaprine 10 Mg PO 10/27/17 03:11 10 mg STAT ONE Administration Cyclobenzaprine HCl Confirm 10/27/17 03:30 Cyclobenzaprine 10 Mg Administered 10/27/17 03:31 Dose 10 mg .ROUTE .STK-MED ONE Hydromorphone HCl 1 mg 10/27/17 03:09 10/27/17 03:23 Hydromorphone 1 Mg/Ml Ampule IM 10/27/17 03:10 1 mg STAT ONE Administration Hydromorphone HCl Confirm 10/27/17 03:30 Dilaudid 2 Mg Injection Administered 10/27/17 03:31 Dose 2 mg .ROUTE .STK-MED ONE - Progress Progress: improved Progress Note: 10/27/17 03:39 Pt feels better after receiving dilaudid and flexeril. Pt will be switched to percocet for pain and flexeril for spasm. Pt will F/U with hand surgeon next week. - Departure Time of Disposition: 03:39 Departure Disposition: Home Clinical Impression: Hand pain Qualifiers: Laterality: left Qualified Code(s): M79.642 - Pain in left hand Condition: Stable Critical Care Time: No Referrals: BIRDIE NOBLE [Primary Care Provider] - Instructions: Hand Pain (DC) Additional Instructions: Follow up with your hand surgeon next week for any additional recommendations for hand pain. STOP taking Glasco and begin taking Percocet as instructed. Prescriptions: Cyclobenzaprine HCl [Flexeril] 10 mg PO TID PRN #15 tablet PRN Reason: Muscle Spasms Oxycodone HCl/Acetaminophen [Percocet 5-325 mg Tablet] 1 each PO QID PRN #12 tablet MDD 4 PRN Reason: Pain
== END 2017-10-27 04:20 | disposition home or self-care (01) ==
LOC: ED 02:27
DX: M79.642 Pain in left hand (principal); M62.838 Other muscle spasm; Z98.890 Other specified postprocedural states; Z79.899 Other long term (current) drug therapy
CPT/HCPCS: 96372; 99283; J1170; A9270-GY

== ENCOUNTER 2017-11-01 15:20 | Emergency (ER) | payer MEDICAID ==
[2017-11-01] MEDS ORDERED: TORAdol 30 mg Injection IM ONE (15:35)
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
[2017-11-01] MEDS ORDERED: TORAdol 30 mg Injection ONE (15:44)
--- NOTE | 2017-11-01 16:12 | XRAY ---
Indication: Laceration following hitting wall. Comparison: None 2 views of the left hand demonstrates tiny punctate radiopaque soft tissue foreign body at the base of the thumb. No other bony, articular, or soft tissue abnormalities.
[2017-11-01 16:52] VITALS: BP 131/65; PULSE 87; O2SAT 99
== END 2017-11-01 16:51 | disposition home or self-care (01) ==
LOC: ED 15:20
DX: S69.91XA Unspecified injury of right wrist, hand and finger(s), initial encounter (principal); M79.641 Pain in right hand; W22.8XXA Striking against or struck by other objects, initial encounter; Z79.899 Other long term (current) drug therapy
CPT/HCPCS: 73120; 96372; 99284; J1885

== ENCOUNTER 2017-11-25 16:52 | Emergency (ER) | payer MEDICAID ==
--- NOTE | 2017-11-25 17:29 | ERPHSYRPT ---
- History of Present Illness Time Seen by Provider: 11/25/17 17:23 Source: patient Exam Limitations: no limitations Patient Subjective Stated Complaint: pt had surgery on left hand 2-3 weeks ago for ligement repair, and he states that now hes hand is numb, has apt sunday with surgeon Triage Nursing Assessment: pt walked in, resp easy, skin w/d/p, has incision to palm of left hand that is healed Physician History: 32-year-old white male with history of migraines, asthma, ulcers, bipolar, intermittent explosive disorder, mentally challenged, patient arrives with complaints that he had surgery on his left hand approximately one month ago. He states that he is not happy he doesn't feel like he is a flexion is progressing in his left fourth finger. He states that when he touches his left fourth finger to his thumb he will feel paresthesias shooting up his left hand. He does have sensation to all fingers. He denies any new injury. Past medical history includes migraines, asthma, ulcers, bipolar disorder, intermittent explosive disorder, patient is mentally challenged. Past surgical history includes hernia repair, orthopedic surgery, back surgery, hand surgery a month ago. Timing/Duration: other (symptoms for a month) Severity: mild Modifying Factors: Improves With: nothing Associated Symptoms: denies symptoms Allergies/Adverse Reactions: divalproex sodium [From Depakote] Allergy (Verified 11/25/17 17:05) olanzapine [From Zyprexa] Allergy (Verified 11/25/17 17:05) pseudoephedrine [From Sudafed] Allergy (Verified 11/25/17 17:05) quetiapine [From Seroquel] Allergy (Verified 11/25/17 17:05) Home Medications: Omeprazole 20 MG [Prilosec 20 mg] 20 mg PO DAILY 12/28/16 [History] Ranitidine HCl [Zantac] 300 mg PO DAILY PRN PRN 12/28/16 [History] Albuterol Sulfate [Proventil Hfa] 6.7 gm IH Q6HPRN PRN 02/26/17 [History] Aspirin/Acetaminophen/Caffeine [Excedrin Extra Strength Caplet] 1 each PO Q6H PRN PRN 02/26/17 [History] Fexofenadine HCl 180 mg PO BID 02/26/17 [History] Fluticasone Propionate [Flonase Nasal] 0 gm INTRANASAL DAILY PRN PRN 02/26/17 [ History] Fluticasone/Salmeterol [Advair 100-50 Diskus] 1 each IH BID 02/26/17 [History] Guanfacine HCl 0.5 mg PO TID 02/26/17 [History] Ibuprofen 200 mg [Motrin 200 mg] 200 mg PO Q8H PRN PRN 02/26/17 [History] Loperamide HCl 2 mg [Imodium 2 mg] 2 mg PO UD 02/26/17 [History] Mupirocin 22 gm TP QID 02/26/17 [History] Ondansetron [Zofran Odt] 4 mg PO Q8H PRN PRN 02/26/17 [History] Pramoxine HCl [Sarna] 222 ml TP BID 02/26/17 [History] Promethazine HCl 25 mg PO Q6H PRN PRN 02/26/17 [History] Sildenafil Citrate [Sildenafil] 20 mg PO UD 02/26/17 [History] Verapamil HCl [Verapamil Sr] 360 mg PO DAILY 02/26/17 [History] lamoTRIgine [Lamictal] 150 mg PO BID 02/26/17 [History] Hx Tetanus, Diphtheria Vaccination/Date Given: Yes Hx Influenza Vaccination/Date Given: Yes Hx Pneumococcal Vaccination/Date Given: No Immunizations Up to Date: Yes - Review of Systems Constitutional: No Fever, No Chills Eyes: No Symptoms Ears, Nose, & Throat: No Symptoms Respiratory: No Cough, No Dyspnea Cardiac: No Chest Pain, No Edema, No Syncope Abdominal/Gastrointestinal: No Abdominal Pain, No Nausea, No Vomiting, No Diarrhea Genitourinary Symptoms: No Dysuria Musculoskeletal: Other (patient with surgery on his left hand 1 month ago, unable to flex his left fourth distal phalanx) Skin: No Rash Neurological: Other (patient states occasionaly feels paresthesia shooting up his hand when he touches the tip of his left fourth finger to his thumb went doing physical therapy) Psychological: No Symptoms Endocrine: No Symptoms All Other Systems: Reviewed and Negative - Past Medical History Pertinent Past Medical History: Yes Neurological History: Migraines Respiratory History: Asthma Musculoskeletal History: Other GI Medical History: Ulcer Psycho-Social History: Bipolar Other Medical History: INTERMITTENT EXPLOSIVE DISORDER. MENTAL RETARDATION - Past Surgical History Past Surgical History: Yes Gastrointestinal: Hernia Repair Musculoskeletal: Orthopedic Surgery Other Surgical History: back surgery, hand surgery - Social History Smoking Status: Current every day smoker How long have you smoked: 20yrs Exposure to second hand smoke: No Alcohol Use: None Drug Use: none Patient Lives Alone: No Significant Family History: no pertinent family hx - Nursing Vital Signs Nursing Vital Signs: Initial Vital Signs Temperature 98.5 F 11/25/17 17:00 Pulse Rate 95 H 11/25/17 17:00 Respiratory Rate 16 11/25/17 17:00 Blood Pressure 143/83 11/25/17 17:00 O2 Sat by Pulse Oximetry 96 11/25/17 17:00 Pain Scale Pain Intensity 0 - Physical Exam General Appearance: no apparent distress, alert Eye Exam: PERRL/EOMI, eyes nml inspection Ears, Nose, Throat Exam: normal ENT inspection, TMs normal, pharynx normal, moist mucous membranes Neck Exam: normal inspection, non-tender, supple, full range of motion Respiratory Exam: normal breath sounds, lungs clear, No respiratory distress Cardiovascular Exam: regular rate/rhythm, normal heart sounds, normal peripheral pulses Gastrointestinal/Abdomen Exam: soft, normal bowel sounds, No tenderness, No mass Back Exam: normal inspection, normal range of motion, No CVA tenderness, No vertebral tenderness Extremity Exam: No normal inspection (Left hand with surgical incision in palm which appears to be healed, patient unable to flex his left fourth DIP joint, good capillary refill all fingers, sensation intact to all fingers, no signs of infection) Neurologic Exam: alert, oriented x 3, cooperative, normal mood/affect, nml cerebellar function, nml station & gait, sensation nml, No motor deficits Skin Exam: normal color Lymphatic Exam: No adenopathy SpO2 Interpretation: normal (96%) SpO2: 96 Oxygen Delivery: Room Air - Course Nursing assessment & vital signs reviewed: Yes - Progress Progress: improved Progress Note: 11/25/17 17:30 This is a 32-year-old white male who had surgery on his left hand tendon repair approximately one month ago. He states that he does not feel like he is progressing well in physical therapy he states he still cannot flex is left fourth DIP finger. He states that he feels paresthesia occasionally when he touches his left fourth finger to his left thumb which shoots up his hand. He apparently has contacted his orthopedic physician and has an appointment next Sunday. He is to see his physical therapist tomorrow. On physical examination patient is unable to flex his left fourth DIP joint. He has full range of motion otherwise to all left fingers good capillary refill to all fingers sensation intact to all fingers. Patient feels like he is been having some swelling in his left fourth fingers I do not see that this time. I has advised the patient to go ahead and elevate his hand if he feels like he has swelling in his fingers and perhaps a cool pack. He is to continue his physical therapy as ordered by his orthopedist. And to follow-up with his orthopedist at his scheduled time, sooner if any problems. - Departure Time of Disposition: 17:32 Departure Disposition: Home Clinical Impression: Finger problem Hand pain Qualifiers: Laterality: left Qualified Code(s): M79.642 - Pain in left hand Condition: Fair Critical Care Time: No Referrals: BIRDIE NOBLE [Primary Care Provider] - Additional Instructions: Return home. Elevate your left hand and apply cold packs if you feel like your having finger swelling. Continue physical therapy as ordered by your orthopedist. Follow-up with your orthopedist as scheduled sooner if any problems. Return for acute distress or for severe symptoms.
[2017-11-25 17:46] VITALS: BP 131/65; PULSE 89; O2SAT 97
== END 2017-11-25 17:45 | disposition home or self-care (01) ==
LOC: ED 16:52
DX: M79.642 Pain in left hand (principal); R20.2 Paresthesia of skin; Z98.890 Other specified postprocedural states; Z79.899 Other long term (current) drug therapy
CPT/HCPCS: 99283

== ENCOUNTER 2018-01-24 00:12 | Emergency (ER) | payer MEDICAID ==
[2018-01-24 00:40] VITALS: BP 136/93; PULSE 86
[2018-01-24] MEDS ORDERED: TORAdol 30 mg Injection IM ONE (00:41)
[2018-01-24] MEDS ORDERED: Cyclobenzaprine 10 MG PO ONE (00:42)
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
[2018-01-24] MEDS ORDERED: TORAdol 30 mg Injection ONE (01:17)
[2018-01-24] MEDS ORDERED: Cyclobenzaprine 10 MG ONE (01:17)
[2018-01-24 02:56] VITALS: O2SAT 93
--- NOTE | 2018-01-24 09:15 | XRAY ---
Indication: Left abdominal pain. Comparison: None 2 views of the abdomen demonstrates a few mild distended small/large bowel loops with synchronous fluid leveling, ileus versus enterocolitis. No focal bowel dilatation, obstruction, or free air. Remaining solid organs and osseous structures unremarkable.
== END 2018-01-24 03:02 | disposition home or self-care (01) ==
LOC: ED 00:12
DX: M54.6 Pain in thoracic spine (principal)
CPT/HCPCS: 74021; 96372; 99284; J1885; A9270-GY

== ENCOUNTER 2018-02-11 21:29 | Emergency (ER) | payer MEDICAID ==
[2018-02-11 21:32] VITALS: BP 125/96; PULSE 85; O2SAT 94
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
[2018-02-11] MEDS ORDERED: TORAdol 30 mg Injection IM ONE (22:34)
[2018-02-11] MEDS ORDERED: TORAdol 30 mg Injection ONE (22:37)
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
== END 2018-02-11 22:44 | disposition home or self-care (01) ==
LOC: ED 21:29
DX: S20.212D Contusion of left front wall of thorax, subsequent encounter (principal); Z79.899 Other long term (current) drug therapy
CPT/HCPCS: 71046; 71100; 93005; 96372; 99284; J1885